=== PATIENT | female | born 1975 | race African-American/Black ===

== ENCOUNTER 2021-02-07 13:21 | Inpatient (IN) | payer MEDICARE, OTHER ==
[~2021-02-07] VITALS: Ht 149.9 cm; Wt 96.1 kg
[2021-02-07] MEDS: LIDOCAINE 5% (LIDODERM) PATCH TD SCH (09:00)
[2021-02-07] MEDS ORDERED: ECOT81TA5 PO (14:46)
[2021-02-07] MEDS ORDERED: MOBI15TA PO (15:08)
[2021-02-07] MEDS ORDERED: PANT40TA29 PO (15:08)
[2021-02-07] MEDS ORDERED: ZOLO50TA PO (15:08)
[2021-02-07] MEDS ORDERED: CARV12.5 PO (15:08)
[2021-02-07] MEDS ORDERED: CYCL-707 PO (15:08)
[2021-02-07] MEDS ORDERED: OXYC-1 PO (15:08)
[2021-02-07] MEDS ORDERED: INSUH10VL SC (15:08)
[2021-02-07] MEDS ORDERED: ATOR40TA75 PO (15:08)
[2021-02-07] MEDS ORDERED: FLON1SPR NARES (15:08)
[2021-02-07] MEDS ORDERED: HYDR-3910 PO (15:08)
[2021-02-07] MEDS ORDERED: GABA-282 PO (15:08)
[2021-02-07] MEDS ORDERED: LISI40TA4 PO (15:08)
--- NOTE | 2021-02-07 15:26 | REP ---
INDICATION: fluid overload. COMPARISON: None. TECHNIQUE: Single portable AP view of the chest was performed. FINDINGS: There is no acute infiltrate. There is pulmonary venous hypertension and moderate cardiomegaly. The mediastinal silhouette appears magnified. IMPRESSION: Moderate cardiomegaly and pulmonary venous hypertension. No acute infiltrate. <Electronically signed by Mac Ring > 02/07/21 [id number]
[2021-02-07 16:30] LABS: HEMATOCRIT 35.1 % (36.0-47.0); HEMOGLOBIN 11.2 g/dl (12.0-15.5); MEAN CORPUSCULAR HEMOGLOBIN 30.6 pg (27.0-33.0); MEAN CORPUSCULAR HGB CONC 31.9 g/dl (32.0-36.5); MEAN CORPUSCULAR VOLUME 95.9 fl (80.0-96.0); PLATELET COUNT, AUTOMATED 135 10^3/uL (150-450); RED BLOOD COUNT 3.66 10^6/uL (4.00-5.40); WHITE BLOOD COUNT 5.4 10^3/uL (4.0-10.0)
[2021-02-07 16:55] LABS: RSV AMPLIFICATION NEGATIVE (NEGATIVE)
[2021-02-07 16:59] LABS: BLOOD UREA NITROGEN 62 MG/DL (7-18); CALCIUM LEVEL 8.3 MG/DL (8.5-10.1); CARBON DIOXIDE LEVEL 30 MEQ/L (21-32); CHLORIDE LEVEL 100 MEQ/L (98-107); GLOMERULAR FILTRATION RATE 4.2 (>58); GLUCOSE, FASTING 76 MG/DL (70-100); POTASSIUM SERUM 5.8 MEQ/L (3.5-5.1); SODIUM LEVEL 136 MEQ/L (136-145)
[2021-02-07] MEDS ORDERED: OXYC-517 PO (17:09)
[2021-02-07] MEDS ORDERED: CLON-412 PO (17:09)
[2021-02-07] MEDS ORDERED: ACET1TAB55 PO (17:09)
[2021-02-07] MEDS ORDERED: CALC667T4 PO (17:09)
[2021-02-07] MEDS ORDERED: CARV3.12 PO (17:16)
[2021-02-07] MEDS ORDERED: VALA1TAB5 PO (17:16)
[2021-02-07] MEDS ORDERED: LOSA50TA88 PO (17:16)
[2021-02-07] MEDS ORDERED: BASA100I SC (17:16)
[2021-02-07] MEDS ORDERED: OXYC7.5T3 PO (17:16)
[2021-02-07] MEDS ORDERED: MIRA3350 PO (17:18)
[2021-02-07] MEDS ORDERED: HOME MED LIST COMPLETE! XX SCH (17:20)
[2021-02-07] MEDS ORDERED: FLUTICASONE PROP 0.05% NASAL SPRAY 16 GM (FLONASE) NARES PRN (18:10)
[2021-02-07] MEDS ORDERED: MIRALAX *UNIT DOSE* 17GM PACKET PO PRN (18:10)
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
[2021-02-07] MEDS ORDERED: GLUCAGON INJ 1MG VIAL SC PRN (18:30)
[2021-02-07] MEDS ORDERED: PERCOCET 5MG/325MG TAB PO ONE (18:30)
[2021-02-07] MEDS ORDERED: DEXTROSE 50% 50 ML SYRINGE IV PRN (18:30)
[2021-02-07] MEDS ORDERED: GLUCOSE 4GM CHEW TABLET PO PRN (18:30)
[2021-02-07] MEDS: ACETAMINOPHEN 500 MG TAB PO SCH ×2 (20:03→21:00)
[2021-02-07] MEDS: **NOTE PATIENT COMMENT** MISC XX SCH (21:00)
[2021-02-07] MEDS: HumaLOG INSULIN (NovoLOG) PER UNIT SC SCH (21:00)
[2021-02-07 21:11] LABS: CK-MB VALUE MASS 1.5 NG/ML (<3.6); CPK CREATINE PHOSPHOKINASE 69 U/L (26-192); MB/CK RELATIVE INDEX 2.17 (< OR =4); NT-PRO BNP 4106 PG/ML (<125); TROPONIN I < 0.02 NG/ML (< 0.10)
[2021-02-07] MEDS ORDERED: SOD POLYSTYRENE SULFONATE SUSP 15 GM/60 ML UD PO ONE (21:55)
[2021-02-07 22:00] VITALS: BP 141/73
[2021-02-07] MEDS: HEPARIN SOD (PORCINE) 5000UNITS/ML 1ML VIAL/SYRINGE SQ SCH (22:23)
[2021-02-07] MEDS: CARVedilol 3.125 MG TAB PO SCH (22:24)
[2021-02-07] MEDS: PANTOPRAZOLE 40MG TAB (PROTONIX) PO SCH (22:24)
[2021-02-07] MEDS: ATORVASTATIN 20 MG TAB PO SCH (22:24)
[2021-02-07] MEDS: GABAPENTIN 300 MG CAP PO SCH (22:24)
--- NOTE | 2021-02-08 01:11 | ECGEPIP ---
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
[2021-02-08] MEDS ORDERED: PERCOCET 5MG/325MG TAB PO PRN (03:30)
[2021-02-08] MEDS: HEPARIN SOD (PORCINE) 5000UNITS/ML 1ML VIAL/SYRINGE SQ SCH ×3 (05:58→22:03)
[2021-02-08 06:09] LABS: BASO % 0.7 % (0.0-1.0); EOS # 0.3 10^3/uL (0.0-0.5); EOS % 4.6 % (0.0-3.0); HEMATOCRIT 33.9 % (36.0-47.0); HEMOGLOBIN 10.9 g/dl (12.0-15.5); LYMPH # 1.8 10^3/uL (1.5-5.0); LYMPH % 30.4 % (24.0-44.0); MEAN CORPUSCULAR HEMOGLOBIN 30.4 pg (27.0-33.0); MEAN CORPUSCULAR HGB CONC 32.2 g/dl (32.0-36.5); MEAN CORPUSCULAR VOLUME 94.7 fl (80.0-96.0); MONO # 0.4 10^3/uL (0.0-0.8); MONO % 6.7 % (2.0-8.0); NEUTROPHILS # 3.3 10^3/uL (1.5-8.5); NEUTROPHILS % 57.1 % (36.0-66.0); PLATELET COUNT, AUTOMATED 152 10^3/uL (150-450); RED BLOOD COUNT 3.58 10^6/uL (4.00-5.40); WHITE BLOOD COUNT 5.8 10^3/uL (4.0-10.0)
[2021-02-08] MEDS: CYCLOBENZAPRINE 10MG TABLET PO PRN ×2 (06:17→14:39)
[2021-02-08 06:19] VITALS: BP 135/76
[2021-02-08] MEDS ORDERED: SODIUM CHLORIDE 0.9% 1000ML IV PRN (07:00)
[2021-02-08] MEDS ORDERED: LIDOCAINE 1% SDV 5ML VIAL SC PRN (07:00)
[2021-02-08 07:04] LABS: BLOOD UREA NITROGEN 72 MG/DL (7-18); CALCIUM LEVEL 8.4 MG/DL (8.5-10.1); CARBON DIOXIDE LEVEL 29 MEQ/L (21-32); CHLORIDE LEVEL 99 MEQ/L (98-107); CHOLESTEROL LEVEL 143 MG/DL (<200); GLUCOSE, FASTING 84 MG/DL (70-100); HDL CHOLESTEROL 25 MG/DL (>40); LDL CHOLESTEROL 82 MG/DL (<100); NON-HDL-C 118 MG/DL; POTASSIUM SERUM 5.4 MEQ/L (3.5-5.1); SODIUM LEVEL 136 MEQ/L (136-145); TRIGLYCERIDES LEVEL 182 MG/DL (<150)
[2021-02-08] MEDS ORDERED: HumaLOG INSULIN (NovoLOG) PER UNIT SC SCH (07:30)
[2021-02-08] MEDS: HumaLOG INSULIN (NovoLOG) PER UNIT SC SCH ×4 (07:30→21:00)
[2021-02-08] MEDS: LOSARTAN 50MG TABLET PO SCH (07:58)
[2021-02-08] MEDS: ASPIRIN 81MG ENTERIC TABLET PO SCH (07:59)
[2021-02-08] MEDS: MELOXICAM (MOBIC) 7.5 MG TAB PO SCH (07:59)
[2021-02-08] MEDS: SERTRALINE HCL 50 MG TAB PO SCH (07:59)
[2021-02-08] MEDS: PANTOPRAZOLE 40MG TAB (PROTONIX) PO SCH ×2 (07:59→22:01)
[2021-02-08] MEDS: GABAPENTIN 300 MG CAP PO SCH ×2 (07:59→22:01)
[2021-02-08] MEDS: ACETAMINOPHEN 500 MG TAB PO SCH ×3 (08:00→22:03)
[2021-02-08] MEDS: CARVedilol 3.125 MG TAB PO SCH ×2 (08:00→22:02)
[2021-02-08] MEDS: LIDOCAINE 5% (LIDODERM) PATCH TD SCH (08:04)
[2021-02-08] MEDS ORDERED: lisinopriL 40 MG TAB PO SCH (09:00)
[2021-02-08 09:16] LABS: HEMOGLOBIN A1c 4.9 %
[2021-02-08 10:34] LABS: HEPATITIS B SURFACE ANTIBODY NEGATIVE (POSITIVE)
[2021-02-08 10:44] LABS: HEPATITIS B SURFACE ANTIGEN NEGATIVE (NEGATIVE)
[2021-02-08 11:12] LABS: HEPATITIS B CORE ANTIBODY IGM NEGATIVE (NEGATIVE)
[2021-02-08 14:00] VITALS: BP 131/73
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
[2021-02-08] MEDS: PERCOCET 5MG/325MG TAB PO PRN ×2 (14:39→22:03)
[2021-02-08] MEDS ORDERED: GABAPENTIN 300 MG CAP PO SCH ×2 (16:00→21:00)
[2021-02-08] MEDS ORDERED: GABAPENTIN 100 MG CAP PO SCH (16:00)
--- NOTE | 2021-02-08 18:00 | IPNPDOC ---
Subjective Date Seen The patient was seen on 02/08/21. Subjective Chief Complaint/HPI Mrs. Ortiz is a 45-year-old female with end-stage renal disease on dialysis Sunday, Sunday, Sunday who is visiting here from [place] without dialysis set up. Patient was seen during dialysis. She denied any chest pain or dyspnea. She just felt fatigued. Patient told me she knew the risks were high when she came here without arranging dialysis. She knew that the risks included , but she really wanted to see her son who was stationed here and took the risk. PFS consulted and working on obtaining dialysis chair. Objective Physical Examination General Exam: Positive: Alert, Cooperative Eye Exam: Negative: Sclera icteric ENT Exam: Positive: Atraumatic Neck Exam: Positive: Supple Chest Exam: Positive: Clear to auscultation Heart Exam: Positive: Rate Normal, Regular Rhythm Abdomen Exam: Positive: Normal bowel sounds, Soft; Negative: Tenderness Neuro Exam: Positive: Normal Speech Psych Exam: Positive: Mental status NL, Mood NL Assessment /Plan Assessment Mrs. Ortiz is a 45-year-old female with end-stage renal disease on dialysis Sunday, Sunday, Sunday who is visiting here from [place] without dialysis set up. Nephrology following for dialysis. Currently pending dialysis chair availability. Plan/VTE VTE Prophylaxis Ordered?: Yes Plan 1. End-stage renal disease on dialysis Sunday, Sunday, Sunday Nephrology following, recommendations appreciated 2. Fluid overload in the setting of missed dialysis Patient has not set up dialysis schedule. PFS consulted, working on obtaining dialysis chair 3. Hyperkalemia In the setting of missed dialysis Start renal diet Continue dialysis 4. Diabetes mellitus type 2 Start carbohydrate consistent diet along with renal diet Sliding scale insulin 5. Hypertension Continue Coreg and losartan 6. Anxiety/depression Continue sertraline 7. GERD Continue pantoprazole twice daily 8. DVT prophylaxis Subcu heparin Disposition: Pending dialysis chair availability VS, I&O, 24H, Fishbone Vital Signs/I&O Vital Signs Date Time Temp Pulse Resp B/P (MAP) Pulse Ox O2 Delivery O2 Flow Rate FiO2 02/08/21 15:43 16 02/08/21 08:00 105 131/78 02/08/21 06:19 98.5 92 Room Air I&O- Last 24 Hours up to 6 AM 02/08/21 06:00 Intake Total 150 ml Balance 150 ml Laboratory Data 24H LABS Laboratory Tests 2 02/07/21 21:51: Bedside Glucose (Misc Panel) 86 02/08/21 05:53: Immature Granulocyte % (Auto) 0.5, Neutrophils (%) (Auto) 57.1, Lymphocytes (%) (Auto) 30.4, Monocytes (%) (Auto) 6.7, Eosinophils (%) (Auto) 4.6H, Basophils (%) (Auto) 0.7, Neutrophils # (Auto) 3.3, Lymphocytes # (Auto) 1.8, Monocytes # (Auto) 0.4, Eosinophils # (Auto) 0.3, Basophils # (Auto) 0.0, Nucleated Red Blood Cells % (auto) 0.0, Anion Gap 8, Glomerular Filtration Rate 4.0L, Estimated Mean Plasma Glucose 94, Hemoglobin A1c 4.9, Calcium Level 8.4L, Triglycerides Level 182H, Total Cholesterol 143, LDL Cholesterol 82, Non-HDL Cholesterol (LDL + VLDL) 118, Total HDL Cholesterol 25L, Cholesterol/HDL Ratio 5.720H, Hepatitis B Surface Antigen NEGATIVE, Hepatitis B Surface Antibody NEGATIVE, Hepatitis B Core IgM Antibody NEGATIVE, Hepatitis C Antibody Index 0.0 02/08/21 13:27: Bedside Glucose (Misc Panel) 101 CBC/BMP Laboratory Tests 02/08/21 05:53 SANCHEZ RODRIGUEZ DO Feb 08, 2021 18:00
[2021-02-08] MEDS: **NOTE PATIENT COMMENT** MISC XX SCH (21:00)
[2021-02-08] MEDS: ATORVASTATIN 20 MG TAB PO SCH (22:02)
[2021-02-09] MEDS: HEPARIN SOD (PORCINE) 5000UNITS/ML 1ML VIAL/SYRINGE SQ SCH ×3 (05:10→22:11)
[2021-02-09 06:45] LABS: BASO % 0.6 % (0.0-1.0); EOS # 0.1 10^3/uL (0.0-0.5); EOS % 4.5 % (0.0-3.0); HEMATOCRIT 32.5 % (36.0-47.0); HEMOGLOBIN 10.3 g/dl (12.0-15.5); LYMPH % 32.7 % (24.0-44.0); MEAN CORPUSCULAR HEMOGLOBIN 30.7 pg (27.0-33.0); MEAN CORPUSCULAR HGB CONC 31.7 g/dl (32.0-36.5); MONO # 0.3 10^3/uL (0.0-0.8); MONO % 9.9 % (2.0-8.0); NEUTROPHILS # 1.6 10^3/uL (1.5-8.5); NEUTROPHILS % 51.7 % (36.0-66.0); PLATELET COUNT, AUTOMATED 109 10^3/uL (150-450); RED BLOOD COUNT 3.35 10^6/uL (4.00-5.40); WHITE BLOOD COUNT 3.1 10^3/uL (4.0-10.0)
[2021-02-09 07:06] VITALS: BP 130/70
[2021-02-09 07:20] LABS: CALCIUM LEVEL 8.3 MG/DL (8.5-10.1); CREATININE FOR GFR 9.3 MG/DL (0.55-1.30); GLOMERULAR FILTRATION RATE 5.8 (>58); POTASSIUM SERUM 4.3 MEQ/L (3.5-5.1)
[2021-02-09] MEDS: PANTOPRAZOLE 40MG TAB (PROTONIX) PO SCH ×2 (09:30→22:11)
[2021-02-09] MEDS: HumaLOG INSULIN (NovoLOG) PER UNIT SC SCH ×4 (09:30→21:00)
[2021-02-09] MEDS: LOSARTAN 50MG TABLET PO SCH (09:30)
[2021-02-09] MEDS: SERTRALINE HCL 50 MG TAB PO SCH (09:30)
[2021-02-09] MEDS: ASPIRIN 81MG ENTERIC TABLET PO SCH (09:30)
[2021-02-09] MEDS: GABAPENTIN 300 MG CAP PO SCH ×3 (09:30→22:11)
[2021-02-09] MEDS: CARVedilol 3.125 MG TAB PO SCH ×2 (09:31→22:11)
[2021-02-09] MEDS: MELOXICAM (MOBIC) 7.5 MG TAB PO SCH (09:31)
[2021-02-09] MEDS: LIDOCAINE 5% (LIDODERM) PATCH TD SCH (09:32)
[2021-02-09] MEDS: ACETAMINOPHEN 500 MG TAB PO SCH ×3 (09:32→22:10)
[2021-02-09] MEDS: PERCOCET 5MG/325MG TAB PO PRN ×3 (09:40→22:12)
[2021-02-09] MEDS: CYCLOBENZAPRINE 10MG TABLET PO PRN ×3 (09:40→22:11)
[2021-02-09] MEDS ORDERED: LIDOCAINE 1% SDV 5ML VIAL SC PRN (11:30)
[2021-02-09] MEDS ORDERED: SODIUM CHLORIDE 0.9% 1000ML IV PRN (11:30)
--- NOTE | 2021-02-09 15:23 | IPN ---
NEPHROLOGY INPATIENT PROGRESS NOTE DATE: 02/09/2021 SUBJECTIVE: Ms. Aguilar is seen and examined this morning at the bedside and later in the afternoon in the Hemodialysis Unit receiving a treatment. She inquires about discharge planning. We are waiting for insurance to appropriate a temporary outpatient dialysis chair while she is in the [facility]. She has no other complaints. She wants to get out of the hospital. PHYSICAL EXAMINATION: Vital signs: Temperature 97.2, pulse 81, respiratory rate 19, blood pressure 130/70, saturating 94% on room air. Intake yesterday was not recorded. Dialysis yesterday removed 3.5 liters. Today we are trying to remove 2.5 liters. General: Patient is seen receiving dialysis awake, alert and oriented times 3, comfortable, in no apparent distress, a morbidly obese female. HEENT: Extraocular muscles are intact. Tongue is moist. Neck: Jugular veins cannot be assessed due to the neck circumference. Heart sounds: Regular S1 and S2. Lungs: Clear to auscultation, no crackle, rale or rhonchus. Abdomen: Obese, soft and nontender. Extremities: There is a fistula in the left arm which is currently in use. Lower extremities have no edema. Neurologic: She is oriented, interactive and conversational. LABORATORY DATA: White count 3.1, hemoglobin 10.3, platelets 109. Sodium 138, potassium 4.3, bicarbonate 27, BUN 40, creatinine 9.3. INPATIENT MEDICATIONS: Reviewed by myself and gabapentin dose was adjusted by the primary team otherwise no new changes are seen. PROBLEMS/PLAN: 1. End-stage renal disease: On hemodialysis on a Sunday, Sunday, Sunday schedule. Patient traveled to the [facility] without arranging for dialysis. She was dialyzed on Sunday with 3.5 liters removed. Her chronic schedule in [place] is Sunday, Sunday, Sunday. I am dialyzing her again today to bring her back to her maintenance schedule and if outpatient treatment can be arranged for February 11 then the patient can be discharged. bulk intake worker is going to call me once they have it set up. 2. Hypertension: Blood pressures are suitably controlled. No further changes are being made. She was on both LESLIE or ARB and we did stop the LESLIE inhibitor. 3. Hyperkalemia: Resolved. It was due to missed dialysis and it is now controlled. 4. Anemia of chronic renal failure: Hemoglobin 10.3 on the latest labs which is optimal. No erythropoietin stimulating agent is being ordered at this time. 5. Fluid overload secondary to missed dialysis and likely underlying congestive heart failure: Echocardiogram was completed, report is pending. Volume status is regulated principally by hemodialysis; 3.5 liters were removed yesterday and we are removing 2.5 liters with her dialysis treatment today.
--- NOTE | 2021-02-09 15:50 | IPNPDOC ---
Subjective Date Seen The patient was seen on 02/09/21. Subjective Chief Complaint/HPI Mrs. Ortiz is a 45-year-old female with end-stage renal disease on dialysis Sunday, Sunday, Sunday who is visiting here from [place] without dialysis set up. This morning, she reported fatigue. I spoke with PFS, still pending approval for the dialysis chair. Otherwise, nephrology will take patient to dialysis session today to get patient back on her regular dialysis schedule. Objective Physical Examination General Exam: Positive: Alert, Cooperative Eye Exam: Negative: Sclera icteric ENT Exam: Positive: Atraumatic Neck Exam: Positive: Supple Chest Exam: Positive: Clear to auscultation Heart Exam: Positive: Rate Normal, Regular Rhythm Abdomen Exam: Positive: Normal bowel sounds, Soft; Negative: Tenderness Neuro Exam: Positive: Normal Speech Psych Exam: Positive: Mental status NL, Mood NL Assessment /Plan Assessment Mrs. Ortiz is a 45-year-old female with end-stage renal disease on dialysis Sunday, Sunday, Sunday who is visiting here from [place] without dialysis set up. Nephrology following for dialysis. Currently pending dialysis chair availability. Plan/VTE VTE Prophylaxis Ordered?: Yes Plan 1. End-stage renal disease on dialysis Sunday, Sunday, Sunday Nephrology following, recommendations appreciated 2. Fluid overload in the setting of missed dialysis Patient has not set up dialysis schedule. PFS consulted, working on obtaining dialysis chair 3. Hyperkalemia In the setting of missed dialysis Start renal diet Continue dialysis 4. Diabetes mellitus type 2 Start carbohydrate consistent diet along with renal diet Sliding scale insulin 5. Hypertension Continue Coreg and losartan 6. Anxiety/depression Continue sertraline 7. GERD Continue pantoprazole twice daily 8. DVT prophylaxis Subcu heparin Disposition: Pending dialysis chair availability VS, I&O, 24H, Raynbonhaley Vital Signs/I&O Vital Signs Date Time Temp Pulse Resp B/P (MAP) Pulse Ox O2 Delivery O2 Flow Rate FiO2 02/09/21 10:10 16 02/09/21 09:31 81 130/70 02/09/21 07:06 97.2 94 Room Air I&O- Last 24 Hours up to 6 AM 02/09/21 06:00 Intake Total 0 ml Output Total 3500 ml Balance -3500 ml Laboratory Data 24H LABS Laboratory Tests 2 02/08/21 17:43: Bedside Glucose (Misc Panel) 117H 02/08/21 22:19: Bedside Glucose (Misc Panel) 113H 02/09/21 06:19: Immature Granulocyte % (Auto) 0.6, Neutrophils (%) (Auto) 51.7, Lymphocytes (%) (Auto) 32.7, Monocytes (%) (Auto) 9.9H, Eosinophils (%) (Auto) 4.5H, Basophils (%) (Auto) 0.6, Neutrophils # (Auto) 1.6, Lymphocytes # (Auto) 1.0L, Monocytes # (Auto) 0.3, Eosinophils # (Auto) 0.1, Basophils # (Auto) 0.0, Nucleated Red Blood Cells % (auto) 0.0, Anion Gap 9, Glomerular Filtration Rate 5.8L, Calcium Level 8.3L CBC/BMP Laboratory Tests 02/09/21 06:19 SANCHEZ RODRIGUEZ DO Feb 09, 2021 15:50
[2021-02-09] MEDS: **NOTE PATIENT COMMENT** MISC XX SCH (21:00)
[2021-02-09 22:00] VITALS: BP 119/59
[2021-02-09] MEDS: ATORVASTATIN 20 MG TAB PO SCH (22:11)
[2021-02-10] MEDS: PERCOCET 5MG/325MG TAB PO PRN (05:47)
[2021-02-10] MEDS: CYCLOBENZAPRINE 10MG TABLET PO PRN (05:47)
[2021-02-10] MEDS: HEPARIN SOD (PORCINE) 5000UNITS/ML 1ML VIAL/SYRINGE SQ SCH (05:47)
[2021-02-10 06:00] VITALS: BP 175/93
[2021-02-10 06:40] LABS: BASO % 0.8 % (0.0-1.0); EOS # 0.2 10^3/uL (0.0-0.5); EOS % 4.8 % (0.0-3.0); HEMATOCRIT 34.2 % (36.0-47.0); HEMOGLOBIN 10.6 g/dl (12.0-15.5); LYMPH # 1.1 10^3/uL (1.5-5.0); LYMPH % 30.5 % (24.0-44.0); MEAN CORPUSCULAR HEMOGLOBIN 30.2 pg (27.0-33.0); MEAN CORPUSCULAR VOLUME 97.4 fl (80.0-96.0); MONO # 0.5 10^3/uL (0.0-0.8); MONO % 12.8 % (2.0-8.0); NEUTROPHILS # 1.9 10^3/uL (1.5-8.5); NEUTROPHILS % 50.3 % (36.0-66.0); PLATELET COUNT, AUTOMATED 112 10^3/uL (150-450); RED BLOOD COUNT 3.51 10^6/uL (4.00-5.40); WHITE BLOOD COUNT 3.7 10^3/uL (4.0-10.0)
[2021-02-10 07:05] LABS: CALCIUM LEVEL 8.9 MG/DL (8.5-10.1); CREATININE FOR GFR 7.1 MG/DL (0.55-1.30); POTASSIUM SERUM 4.3 MEQ/L (3.5-5.1)
[2021-02-10] MEDS: HumaLOG INSULIN (NovoLOG) PER UNIT SC SCH ×2 (07:30→12:00)
[2021-02-10] MEDS: GABAPENTIN 300 MG CAP PO SCH (09:51)
[2021-02-10] MEDS: SERTRALINE HCL 50 MG TAB PO SCH (09:52)
[2021-02-10] MEDS: ACETAMINOPHEN 500 MG TAB PO SCH (09:52)
[2021-02-10] MEDS: PANTOPRAZOLE 40MG TAB (PROTONIX) PO SCH (09:52)
[2021-02-10] MEDS: LOSARTAN 50MG TABLET PO SCH (09:53)
[2021-02-10] MEDS: ASPIRIN 81MG ENTERIC TABLET PO SCH (09:53)
[2021-02-10] MEDS: MELOXICAM (MOBIC) 7.5 MG TAB PO SCH (09:53)
[2021-02-10 09:54] VITALS: BP 136/73
[2021-02-10] MEDS: LIDOCAINE 5% (LIDODERM) PATCH TD SCH (09:54)
[2021-02-10] MEDS: CARVedilol 3.125 MG TAB PO SCH (09:54)
--- NOTE | 2021-02-10 15:57 | ECHO ---
ECHOCARDIOGRAM DATE OF PROCEDURE: 02/08/2021 Age: 45 Gender: Female Height: 59 inches Weight: 211 pounds Body surface area: 1.88 m2 Inpatient, [facility], room 5150. REFERRING PHYSICIAN: Dr. Theresa Beavers INDICATION: Congestive heart failure (CHF). MEASUREMENTS: 2D Measurements: RV - 2.5 cm LV - 5.2 cm Septum 1.2 cm Posterior wall 1.2 cm Aortic root 3.3 cm LA - 4.0 cm LVEF 65% Doppler Measurements: AV - 1.63 m2 LVOT 0.9 m/s LVOT diameter 2.1 cm MV-E 103, A 132, E/A ratio 0.8 Early mitral deceleration time 193 msec E prime medial 6.1 A prime medial 12.6 E prime lateral 4.1 Average E/E prime ratio 20.2/PCWP - 26.9 mmHg PV - 0.8 m/s Pulmonary artery acceleration time 106 msec PASP 35 mmHg IVC - 1.2 cm COMMENTS: Normal sinus rhythm without any intraventricular conduction disturbance. Technically challenging study in light of the patient's body habitus, but diagnostically useful information was still obtained. M-mode and 2-dimensional echocardiography was performed with pulse, continuous wave, color flow, and tissue Doppler studies. Borderline left ventricular hypertrophy with normal wall motion. Mildly dilated left atrium with grade 1 LV diastolic dysfunction and elevated estimated mean left atrial pressure. Normal right heart chamber sizes and wall motion with Doppler evidence of mild pulmonary hypertension. Normal to small IVC size with complete collapse against significantly elevated central venous pressure. Normal aortic dimensions. Subtle aortic valvular sclerosis without stenosis and very mild insufficiency. Normal-appearing mitral valvular apparatus with adequate leaflet excursion and no posterior systolic buckling and only very mild insufficiency. Normal-appearing tricuspid valve with trace to very mild insufficiency. No apparent intracardiac mass. Miniscule posterior pericardial effusion measuring 2 mm during diastole without any evidence of cardiac chamber compression.
--- NOTE | 2021-02-10 17:56 | IPN ---
PROGRESS NOTE DATE: 02/10/2021 SUBJECTIVE: Ms. Aguilar is seen and examined this morning at the bedside. She is discharge pending. She was set up for outpatient hemodialysis treatment at [facility] on February 11 and her next dialysis after that will be back in [place] on her usual Sunday, Sunday, Sunday schedule. She was dialyzed yesterday in the hospital with 2.5 liters removed. She offers no complaints today. She is looking forward to discharge. OBJECTIVE: VITAL SIGNS: Temperature 97.1, pulse 93, respiratory rate 20, blood pressure 136/73, saturating 100% on room air. INTAKE/OUTPUT: Intake yesterday was 1 liter. Dialysis yesterday removed 2.5 liters. Weight in the bed scale today is not recorded. GENERAL: Patient is seen sitting in the bed, a middle-age female, morbidly obese, awake, alert and oriented, and in no distress. HEENT: Extraocular muscles are intact. Tongue is moist. Jugular veins could not be assessed secondary to body habitus and obesity. HEART: Heart sounds are regular, S1, S2. There is no peripheral edema. LUNGS: Clear to auscultation. No crackle, rale or rhonchus. ABDOMEN: Obese, soft and nontender. EXTREMITIES: There is a fistula in the left arm which is patent with thrill and bruit. NEUROLOGIC: She is oriented and interactive. There are no focal deficits. MUSCULOSKELETAL: There is clubbing or edema. LABORATORY DATA: White count 3.7, hemoglobin 10.6, platelets 112,000. Sodium 136, potassium 4.3, bicarbonate 28, BUN 23, creatinine 7.1, glucose 89. INPATIENT MEDICATIONS: Reviewed by myself. No changes noted over the past 24 hours. PROBLEMS: 1. End-stage renal disease on hemodialysis on a Sunday, Sunday, Sunday schedule: Patient was traveling to the [facility] without having arranged her chronic hemodialysis. She was dialyzed in the hospital on Sunday and Sunday and she is set up one outpatient treatment here in [place] on February 11. She will travel back to [place] over the weekend and will have her usual Sunday, Sunday, Sunday dialysis at her usual center next week. Her electrolytes and volume status are acceptable. Patient is okay for discharge today from nephrology point of view. 2. Hypertension: Blood pressures are adequately controlled. While she was in the hospital, we did stop Lisinopril given that she is also on Losartan. No other changes were made to her antihypertensive regimen. 3. Hyperkalemia: It was due to missed dialysis and it has resolved. She will follow with a renal diet. 4. Anemia: It is related to chronic renal failure. Hemoglobin is 10.6 on the latest labs, which is optimal for ESRD. She will follow-up with her outpatient dialysis unit. DISPOSITION: Patient is stable for discharge from my point of view.
--- NOTE | 2021-02-10 18:44 | DS.PDOC ---
Discharge Summary General Date of Admission Feb 07, 2021 at 16:59 Date of Discharge Feb 10, 2021 Specialist/Cons[facility]ants [facility], Dr. Dillon Discharge Summary PROCEDURES PERFORMED DURING STAY: None ADMITTING DIAGNOSES: 1. ESRD on dialysis MWF 2. Fluid overload in the setting of the missed dialysis 3. Hyperkalemia 4. DM type 2 5. Hypertension 6. Anxiety/depression 7. GERD 8. Obesity DISCHARGE DIAGNOSES: 1. ESRD on dialysis MWF 2. Fluid overload in the setting of the missed dialysis 3. Hyperkalemia 4. DM type 2 5. Hypertension 6. Anxiety/depression 7. GERD 8. Obesity COMPLICATIONS/CHIEF COMPLAINT: Esrd On Hemodialysis. HISTORY OF PRESENT ILLNESS: Copied from admitting provider's H&P " 45-year-old female with history of end-stage renal disease on maintenance adán lysis Sunday from [place] arrived yesterday to visit her son at [place] presents with worsening shortness of breath since yesterday without fever chills or cough patient has not arranged dialysis prior to leaving [place] and presents to the emergency room for emergency dialysis due to fluid overload. Patient denies any recent weight gain and says her dry weight is 96.1 kg. She denies any chest pain, tightness, dizziness, lightheadedness, nausea, vomiting, abdominal pain. She admits to chronic back pain in the lower back without radiation. She complains of weakness and difficulty ambulating. She otherwise denies any dysuria urgency frequency bright red blood per rectum melena or black tarry stools. In the emergency room, COVID-19 was negative, EKG was sinus rhythm, and chest x- ray showed cardiomegaly no acute infiltrate moderate pulmonary hypertension. Nephrology was consulted for dialysis. Hospitalist was asked to admit the patient for missed dialysis " HOSPITAL COURSE: Patient did well during her hospitalization. She was dialyzed on Sunday and Sunday. On (today), we were able to obtain a dialysis chair for patient for Sunday. This morning, patient denied any chest pain or dyspnea. She felt well and was discharged home today. DISCHARGE MEDICATIONS: Please see below. ALLERGIES: Please see below. PHYSICAL EXAMINATION ON DISCHARGE: VITAL SIGNS: Please see below. GENERAL: Comfortable, in no apparent distress HEENT: Head normocephalic, atraumatic NECK: Supple CARDIOVASCULAR EXAMINATION: Regular rate and rhythm RESPIRATORY EXAMINATION: Lungs clear to auscultation bilaterally ABDOMINAL EXAMINATION: Soft, non-tender, normal bowel sounds SKIN: Warm and dry NEUROLOGICAL EXAMINATION: CN 3-12 grossly intact PSYCHIATRIC EXAMINATION: Normal mood and affect LABORATORY DATA: Please see below. IMAGING: Radiologist interpretation CXR Moderate cardiomegaly and pulmonary venous hypertension. No acute infiltrate. PROGNOSIS: Good ACTIVITY: As tolerated. DIET: Renal diet DISCHARGE PLAN: Home DISPOSITION: Home, Self-Care. DISCHARGE INSTRUCTIONS: 1. Follow up with PCP in 1 week 2. Follow up with nephrology in 1 to 2 weeks DISCHARGE CONDITION: Stable. Total time spent on discharge planning, discharge summary, and medication reconciliation: 35 minutes Vital Signs/I&Os Vital Signs Date Time Temp Pulse Resp B/P (MAP) Pulse Ox O2 Delivery O2 Flow Rate FiO2 02/10/21 09:54 92 136/73 02/10/21 06:17 16 02/10/21 06:00 97.1 100 Room Air I&O- Last 24 Hours up to 6 AM 02/10/21 06:00 Intake Total 1000 ml Output Total 2500 ml Balance -1500 ml Laboratory Data Labs 24H Laboratory Tests 2 02/09/21 20:58: Bedside Glucose (Misc Panel) 114H 02/10/21 06:15: Immature Granulocyte % (Auto) 0.8, Neutrophils (%) (Auto) 50.3, Lymphocytes (%) (Auto) 30.5, Monocytes (%) (Auto) 12.8H, Eosinophils (%) (Auto) 4.8H, Basophils (%) (Auto) 0.8, Neutrophils # (Auto) 1.9, Lymphocytes # (Auto) 1.1L, Monocytes # (Auto) 0.5, Eosinophils # (Auto) 0.2, Basophils # (Auto) 0.0, Nucleated Red Blood Cells % (auto) 0.0, Anion Gap 6L, Glomerular Filtration Rate 8.0L, Calcium Level 8.9 02/10/21 12:35: Bedside Glucose (Misc Panel) 84 CBC/BMP Laboratory Tests 02/10/21 06:15 FSBS Laboratory Tests Test 02/09/21 20:58 02/10/21 12:35 Range/Units Bedside Glucose (Misc Panel) 114 84 70-105 MG/DL Discharge Medications Scheduled Aspirin (Ecotrin) 81 Mg Tablet.dr, 81 MG PO DAILY, (Reported) Atorvastatin Calcium (Atorvastatin Calcium) 40 Mg Tablet, 40 MG PO QHS, (Reported) Calcium Acetate (Calcium Acetate) 667 Mg Tablet, 667 MG PO TID, (Reported) Carvedilol (Carvedilol) 3.125 Mg Tablet, 3.125 MG PO BID, (Reported) Gabapentin (Gabapentin) 300 Mg Capsule, 300 MG PO TID, (Reported) Insulin Glargine,Hum.rec.anlog (Basaglar Kwikpen U-100) 100 Unit/1 Ml Insuln.pen, 10 UNITS SC DAILY, (Reported) Insulin Human Lispro (Novolog) 100 Unit/1 Ml Vial, 1 UNITS SC AC, (Reported) PER SLIDING SCALE Lisinopril (Lisinopril) 40 Mg Tablet, 40 MG PO DAILY, (Reported) Losartan Potassium (Losartan Potassium) 50 Mg Tablet, 50 MG PO DAILY, (Reported) Meloxicam (Mobic) 15 Mg Tablet, 15 MG PO DAILY, (Reported) Pantoprazole Sodium (Pantoprazole Sodium) 40 Mg Tablet.dr, 40 MG PO BID, (Reported) Sertraline Hcl (Zoloft) 50 Mg Tablet, 50 MG PO DAILY, (Reported) Valacyclovir HCl (Valacyclovir) 1,000 Mg Tablet, 1,000 MG PO DAILY, (Reported) Scheduled PRN Acetaminophen (Acetaminophen) 325 Mg Tablet, 325 MG PO Q4H PRN for PAIN LEVEL 1- 4, (Reported) Cyclobenzaprine HCl (Cyclobenzaprine HCl) 10 Mg Tablet, 10 MG PO TID PRN for MUSCLE SPASMS, (Reported) Fluticasone Propionate (Flonase Allergy Relief) 9.9 Ml [place].susp, 2 SPRAY NARES DAILY PRN for CONGESTION, (Reported) Oxycodone HCl/Acetaminophen (Oxycodon-Acetaminophen 7.5-325) 1 Each Tablet, 1 TAB PO QID PRN for PAIN LEVEL 4-7, (Reported) Polyethylene Glycol 3350 (Miralax) 119 Gm Powder, 17 GM PO DAILY PRN for CONSTIPATION, (Reported) dilute in 8 ounces of water or juice Allergies Coded Allergies: tramadol (Verified Allergy, Unknown, 02/07/21) SANCHEZ RODRIGUEZ DO Feb 10, 2021 18:44
== END 2021-02-10 13:40 | disposition home or self-care (01) | DRG 640 ==
LOC: M ED 13:21 → M ED INP 16:59 → ENRESERV 19:09 → M MS5PR 20:24
PROVIDERS: ADMIT General Practice; ATTEND Internal Medicine
PROC: 5A1D70Z Performance of Urinary Filtration, Intermittent, Less than 6 Hours Per Day (ICD-10-PCS; principal; 2021-02-08)
DX: E87.70 Fluid overload, unspecified (principal); N18.6 End stage renal disease; Z68.41 Body mass index [BMI] 40.0-44.9, adult; I13.2 Hypertensive heart and chronic kidney disease with heart failure and with stage 5 chronic kidney disease, or end stage renal disease; N25.81 Secondary hyperparathyroidism of renal origin; I50.9 Heart failure, unspecified; E11.22 Type 2 diabetes mellitus with diabetic chronic kidney disease; E66.9 Obesity, unspecified; E87.5 Hyperkalemia; K21.9 Gastro-esophageal reflux disease without esophagitis; F41.9 Anxiety disorder, unspecified; F32.9 Major depressive disorder, single episode, unspecified; Z79.899 Other long term (current) drug therapy; Z79.82 Long term (current) use of aspirin; Z88.8 Allergy status to other drugs, medicaments and biological substances; Z79.4 Long term (current) use of insulin; E11.40 Type 2 diabetes mellitus with diabetic neuropathy, unspecified; D63.1 Anemia in chronic kidney disease